=== PATIENT | female | born 1985 | race Caucasian/White ===

== ENCOUNTER 2016-04-10 19:56 | Emergency (ER) | payer MEDICAID ==
[2014-06-24 21:53] VITALS: BMI 17.8
[~2016-04-10 19:56] MED LIST: DILANTIN100 MG PO; FAMOTIDINE10 MG PO; HYDROCODONE-APA1 TAB PO; LEVAQUIN500 MG PO
[2016-04-10 20:58] LABS: EOSINOPHILS 2.3 % (0-7); HEMATOCRIT 40.8 % (36.0-48.0); HEMOGLOBIN 13.7 g/dL (12-16); IMMATURE GRANULOCYTES 0.5 % (0-5); LYMPHOCYTES 21.7 % (15-50); MCH 29.3 pg (26.0-34.0); MCHC 33.6 g/dL (31.0-37.0); MCV 87.4 fL (80.0-100.0); MEAN PLATELET VOLUME 11.3 fL (7.4-10.4); MONOCYTES 15.6 % (2-11); NEUTROPHILS 58.9 % (40-80); PLATELET COUNT 216 10x3/uL (130-400); RBC 4.67 10x6/uL (4.00-5.40); WBC 6.2 10x3/uL (4.8-10.8)
[2016-04-10 21:08] LABS: APTT 30.3 SECONDS (22.8-39.4); INR 1.15 (0.85-1.17); PROTIME 14.6 SECONDS (11.6-15.0)
[2016-04-10 21:17] LABS: ALBUMIN 3.7 g/dL (3.4-5.0); ALKALINE PHOSPHATASE 61 U/L (46-116); ALT (SGPT) 12 U/L (10-68); BILIRUBIN - TOTAL 0.54 mg/dL (0.2-1.3); CALC OSMOLALITY 283 mosm/kg (275-300); CALCIUM 8.8 mg/dL (8.5-10.1); CARBON DIOXIDE 27.1 mmol/L (21.0-32.0); CHLORIDE - SERUM 106 mmol/L (98-107); CREATININE - SERUM 0.9 mg/dL (0.6-1.3); GLUCOSE 90 mg/dL (74-106); POTASSIUM - SERUM 3.1 mmol/L (3.5-5.1); PROTEIN - SERUM 7.4 g/dL (6.4-8.2); SODIUM 143 mmol/L (136-145); UREA NITROGEN 9 mg/dL (7-18); eGFR NON AFRICAN AMERICAN 78 mL/min (90-120)
== END 2016-04-11 01:28 | disposition home or self-care (01) ==
LOC: D.ER 19:56
PROVIDERS: Family Medicine
DX: R10.9 Unspecified abdominal pain (principal); F17.200 Nicotine dependence, unspecified, uncomplicated; B19.20 Unspecified viral hepatitis C without hepatic coma; G40.909 Epilepsy, unspecified, not intractable, without status epilepticus

== ENCOUNTER → 2016-04-25 12:52 | Outpatient (CLI) | payer MEDICAID ==
[2014-06-24 21:53] VITALS: BMI 17.8
--- NOTE | 2016-05-03 08:45 | EEG ---
PATIENT:ADAN VALADEZ DATE OF SERVICE: 04/25/16 MEDICAL RECORD: [id number] DATE OF : 87 LOCATION: [facility] ADMISSION DATE: 04/25/16 REFERRING PHYSICIAN: INTERPRETING PHYSICIAN: RAHEL MONGE MD DATE OF SERVICE: 04/25/2016 Referred as an outpatient by Dr. Uzair Altman. ELECTROENCEPHALOGRAM NUMBER: [id number]. DATE OF EXAMINATION: 04/25/2016 at 1:30 p.m. TECHNICAL DATA: This electroencephalographic recording consisted of approximately 20 minutes of data collection utilizing the international 10/20 system of electrode placement and both referential and non-referential montages. Sixteen channels of electrocerebral recording are accompanied by a 17th channel dedicated to the electrocardiographic rhythm and 2 channels of electromyographic recording. Recording is performed entirely in the waking state utilizing activation by photic stimulation. ELECTROENCEPHALOGRAPHIC DATA: The awake state comprises the entirety of the recorded electrocerebral activity. Electromyographic artifact is prominent and rapid eye movements are seen. The posterior dominant background consists of a symmetric, rhythmic, waxing and waning 8-9 Hz alpha activity, which is suppressed by eye opening. On 2 separate occasions, there is sudden 3 Hz spike and wave activity that lasts only 1-2 seconds. No clinical correlate is observed. Photic stimulation induces no change in the recorded electrocerebral activity. INTERPRETATION: A 3 Hz spike and wave (awake). This electroencephalographic recording demonstrates a pattern of 3 Hz spike and wave activity that is generalized in distribution, which is often associated with typical absence. Clinical correlation is required. TRANSINT:[id number] Voice Confirmation ID: [id number] DOCUMENT ID: [id number] RAHEL MONGE MD at 0845 CC: [id number] DICTATION DATE: 04/26/16 0615 BAR ASSISTANT: 04/26/16 0702 DEP CLI 04/25/16 [place] [id number] [place] [id number]
== END | disposition home or self-care (01) ==
LOC: D.CN 04-21 11:00
DX: R56.9 Unspecified convulsions (principal)

== ENCOUNTER 2016-06-12 19:00 | Emergency (ER) | payer MEDICAID ==
[2014-06-24 21:53] VITALS: BMI 17.8
[2016-06-12 19:32] LABS: BASOPHILS 1.5 % (0.0-2.0); EOSINOPHILS 4.2 % (0-7); HEMATOCRIT 44.5 % (36.0-48.0); HEMOGLOBIN 14.5 g/dL (12-16); IMMATURE GRANULOCYTES 0.2 % (0-5); LYMPHOCYTES 34.7 % (15-50); MCH 28.9 pg (26.0-34.0); MCHC 32.6 g/dL (31.0-37.0); MCV 88.6 fL (80.0-100.0); MEAN PLATELET VOLUME 11.4 fL (7.4-10.4); MONOCYTES 7.9 % (2-11); NEUTROPHILS 51.5 % (40-80); PLATELET COUNT 232 10x3/uL (130-400); RBC 5.02 10x6/uL (4.00-5.40); RDW 14.1 % (11.5-14.5); WBC 5.5 10x3/uL (4.8-10.8)
[2016-06-12 19:47] LABS: HCG SERUM NEGATIVE (NEGATIVE)
[2016-06-12 22:32] LABS: APPEARANCE CLEAR (CLEAR); COLOR YELLOW (YELLOW); LEUKOCYTE ESTERASE TRACE (NEGATIVE)
[2016-06-12 22:33] LABS: BACTERIA MODERATE /hpf (NONE SEEN); BILIRUBIN NEGATIVE (NEGATIVE); GLUCOSE NEGATIVE (NEGATIVE); KETONE NEGATIVE (NEGATIVE); NITRITE POSITIVE (NEGATIVE); PROTEIN NEGATIVE (NEGATIVE); RED CELLS - URINE OCC /hpf (0-5); UROBILINOGEN NORMAL (NORMAL)
== END 2016-06-12 21:47 | disposition home or self-care (01) ==
LOC: D.ER 19:00
PROVIDERS: Emergency Medicine; Physician Assistant Medical
DX: J06.9 Acute upper respiratory infection, unspecified (principal); H66.92 Otitis media, unspecified, left ear; M25.50 Pain in unspecified joint; N39.0 Urinary tract infection, site not specified; B19.20 Unspecified viral hepatitis C without hepatic coma; G40.909 Epilepsy, unspecified, not intractable, without status epilepticus; F17.200 Nicotine dependence, unspecified, uncomplicated

== ENCOUNTER 2016-06-22 15:40 | Emergency (ER) | payer MEDICAID ==
[2014-06-24 21:53] VITALS: BMI 17.8
[2016-06-22 19:40] LABS: APPEARANCE CLEAR (CLEAR); BILIRUBIN NEGATIVE (NEGATIVE); COLOR YELLOW (YELLOW); GLUCOSE NEGATIVE (NEGATIVE); KETONE SMALL mg/dL (NEGATIVE); LEUKOCYTE ESTERASE NEGATIVE (NEGATIVE); NITRITE NEGATIVE (NEGATIVE); PROTEIN NEGATIVE (NEGATIVE); UROBILINOGEN NORMAL (NORMAL)
== END 2016-06-22 19:21 | disposition home or self-care (01) ==
LOC: D.ER 15:40
PROVIDERS: Emergency Medicine
DX: J20.9 Acute bronchitis, unspecified (principal); F17.200 Nicotine dependence, unspecified, uncomplicated

== ENCOUNTER 2016-06-29 17:33 | Emergency (ER) | payer MEDICAID ==
[2014-06-24 21:53] VITALS: BMI 17.8
[2016-06-29 19:25] LABS: APPEARANCE CLEAR (CLEAR); BILIRUBIN NEGATIVE (NEGATIVE); COLOR YELLOW (YELLOW); GLUCOSE NEGATIVE (NEGATIVE); KETONE NEGATIVE (NEGATIVE); LEUKOCYTE ESTERASE NEGATIVE (NEGATIVE); NITRITE NEGATIVE (NEGATIVE); PROTEIN NEGATIVE (NEGATIVE); UROBILINOGEN NORMAL (NORMAL)
== END 2016-06-29 20:21 | disposition home or self-care (01) ==
LOC: D.ER 17:33
PROVIDERS: Emergency Medicine
DX: J20.9 Acute bronchitis, unspecified (principal); J01.90 Acute sinusitis, unspecified; R30.0 Dysuria; F17.200 Nicotine dependence, unspecified, uncomplicated

== ENCOUNTER 2016-08-01 16:18 | Emergency (ER) | payer MEDICAID ==
[2014-06-24 21:53] VITALS: BMI 17.8
== END 2016-08-01 21:52 | disposition left against medical advice (07) ==
LOC: D.ER 16:18
DX: S99.921A Unspecified injury of right foot, initial encounter (principal); X58.XXXA Exposure to other specified factors, initial encounter; Y93.89 Activity, other specified; Y92.89 Other specified places as the place of occurrence of the external cause

== ENCOUNTER 2016-11-23 10:46 | Emergency (ER) | payer MEDICAID ==
[2014-06-24 21:53] VITALS: BMI 17.8
[2016-11-23 12:17] LABS: HCG URINE NEGATIVE (NEGATIVE)
[2016-11-23 12:25] LABS: APPEARANCE CLOUDY (CLEAR); BACTERIA MANY /hpf (NONE SEEN); BILIRUBIN NEGATIVE (NEGATIVE); COLOR YELLOW (YELLOW); EPITHELIAL CELLS 0-5 /hpf (0-5); GLUCOSE NEGATIVE (NEGATIVE); KETONE NEGATIVE (NEGATIVE); LEUKOCYTE ESTERASE 1+ (NEGATIVE); MUCUS <1+ /lpf (NONE SEEN); NITRITE POSITIVE (NEGATIVE); PROTEIN NEGATIVE (NEGATIVE); UROBILINOGEN NORMAL (NORMAL)
== END 2016-11-23 13:00 | disposition home or self-care (01) ==
LOC: D.ER 10:46
PROVIDERS: Emergency Medicine
DX: M54.5 Low back pain (principal); M79.602 Pain in left arm

== ENCOUNTER 2016-11-26 14:06 | Emergency (ER) | payer MEDICAID ==
[2014-06-24 21:53] VITALS: BMI 17.8
== END 2016-11-26 16:35 | disposition home or self-care (01) ==
LOC: D.ER 14:06
DX: S99.922A Unspecified injury of left foot, initial encounter (principal); W10.9XXA Fall (on) (from) unspecified stairs and steps, initial encounter; Y93.89 Activity, other specified; Y92.019 Unspecified place in single-family (private) house as the place of occurrence of the external cause; F17.200 Nicotine dependence, unspecified, uncomplicated

== ENCOUNTER 2017-02-13 19:34 | Emergency (ER) | payer MEDICAID ==
[2014-06-24 21:53] VITALS: BMI 17.8
[2017-02-13 20:31] LABS: BASOPHILS 0.5 % (0-2); HEMATOCRIT 42.2 % (36.0-48.0); HEMOGLOBIN 13.8 g/dL (12-16); IMMATURE GRANULOCYTES 0.1 % (0-5); LYMPHOCYTES 26.2 % (15-50); MCH 29.5 pg (26.0-34.0); MCHC 32.7 g/dL (31.0-37.0); MCV 90.2 fL (80.0-100.0); MEAN PLATELET VOLUME 11.4 fL (7.4-10.4); MONOCYTES 8.1 % (2-11); NEUTROPHILS 58.1 % (40-80); PLATELET COUNT 232 10x3/uL (130-400); RBC 4.68 10x6/uL (4.00-5.40); WBC 9.4 10x3/uL (4.8-10.8)
[2017-02-13 20:42] LABS: APPEARANCE HAZY (CLEAR); COLOR YELLOW (YELLOW); SPECIFIC GRAVITY 1.015 (1.005-1.020)
[2017-02-13 20:43] LABS: BACTERIA FEW /hpf (NONE SEEN); BILIRUBIN NEGATIVE (NEGATIVE); GLUCOSE NEGATIVE (NEGATIVE); KETONE NEGATIVE (NEGATIVE); NITRITE NEGATIVE (NEGATIVE); PROTEIN NEGATIVE (NEGATIVE); RED CELLS - URINE >50 /hpf (0-5); UROBILINOGEN NORMAL (NORMAL)
[2017-02-13 20:47] LABS: HCG SERUM NEGATIVE (NEGATIVE)
== END 2017-02-13 23:32 | disposition home or self-care (01) ==
LOC: D.ER 19:34
PROVIDERS: Emergency Medicine; Physician Assistant
DX: N93.9 Abnormal uterine and vaginal bleeding, unspecified (principal); R10.2 Pelvic and perineal pain; N73.9 Female pelvic inflammatory disease, unspecified; F17.200 Nicotine dependence, unspecified, uncomplicated

== ENCOUNTER 2017-04-23 08:49 | Emergency (ER) | payer MEDICAID ==
[2014-06-24 21:53] VITALS: BMI 17.8
[2017-04-23 09:25] LABS: HCG URINE NEGATIVE (NEGATIVE)
[2017-04-23 09:25] LABS: BASOPHILS 0.2 % (0-2); EOSINOPHILS 3.5 % (0-7); HEMOGLOBIN 15.2 g/dL (12-16); IMMATURE GRANULOCYTES 0.3 % (0-5); LYMPHOCYTES 13.3 % (15-50); MCH 29.8 pg (26.0-34.0); MCHC 33.8 g/dL (31.0-37.0); MCV 88.2 fL (80.0-100.0); MONOCYTES 6.5 % (2-11); NEUTROPHILS 76.2 % (40-80); PLATELET COUNT 270 10x3/uL (130-400)
[2017-04-23 09:28] LABS: APPEARANCE CLEAR (CLEAR); BILIRUBIN NEGATIVE (NEGATIVE); COLOR YELLOW (YELLOW); GLUCOSE NEGATIVE (NEGATIVE); KETONE NEGATIVE (NEGATIVE); NITRITE NEGATIVE (NEGATIVE); PROTEIN NEGATIVE (NEGATIVE); SPECIFIC GRAVITY 1.015 (1.005-1.020); UROBILINOGEN NORMAL (NORMAL)
[2017-04-23 09:29] LABS: EPITHELIAL CELLS 0-5 /hpf (0-5); RED CELLS - URINE 0-5 /hpf (0-5)
[2017-04-23 09:30] LABS: BACTERIA FEW /hpf (NONE SEEN)
[2017-04-23 09:40] LABS: ALKALINE PHOSPHATASE 78 U/L (46-116); ALT (SGPT) 15 U/L (10-68); AMYLASE - SERUM 86 U/L (25-115); BILIRUBIN - TOTAL 0.21 mg/dL (0.2-1.3); CALC OSMOLALITY 277 mosm/kg (275-300); CALCIUM 8.7 mg/dL (8.5-10.1); CARBON DIOXIDE 22.9 mmol/L (21.0-32.0); CHLORIDE - SERUM 106 mmol/L (98-107); CREATININE - SERUM 0.9 mg/dL (0.6-1.3); GLUCOSE 105 mg/dL (74-106); LIPASE 153 U/L (73-393); POTASSIUM - SERUM 3.8 mmol/L (3.5-5.1); PROTEIN - SERUM 7.4 g/dL (6.4-8.2); SODIUM 139 mmol/L (136-145); UREA NITROGEN 13 mg/dL (7-18); eGFR NON AFRICAN AMERICAN 78 mL/min (90-120)
[2017-04-23 09:53] LABS: UDS - AMPHET NEGATIVE QUAL (NEGATIVE); UDS - BARB NEGATIVE QUAL (NEGATIVE); UDS - BENZO NEGATIVE QUAL (NEGATIVE); UDS - COCAINE NEGATIVE QUAL (NEGATIVE); UDS - OPIATE NEGATIVE QUAL (NEGATIVE); UDS - PCP NEGATIVE QUAL (NEGATIVE); UDS - THC POSITIVE QUAL (NEGATIVE)
== END 2017-04-23 11:23 | disposition home or self-care (01) ==
LOC: D.ER 08:49
PROVIDERS: Family Medicine
DX: R10.9 Unspecified abdominal pain (principal); A59.01 Trichomonal vulvovaginitis; K29.00 Acute gastritis without bleeding; F17.200 Nicotine dependence, unspecified, uncomplicated

== ENCOUNTER 2017-06-06 21:09 | Emergency (ER) | payer MEDICAID ==
[2014-06-24 21:53] VITALS: BMI 17.8
[2017-06-06 22:24] LABS: APPEARANCE CLEAR (CLEAR); BILIRUBIN NEGATIVE (NEGATIVE); COLOR YELLOW (YELLOW); GLUCOSE NEGATIVE (NEGATIVE); KETONE NEGATIVE (NEGATIVE); NITRITE NEGATIVE (NEGATIVE); PROTEIN NEGATIVE (NEGATIVE); UROBILINOGEN NORMAL (NORMAL)
[2017-06-06 22:26] LABS: BACTERIA MANY /hpf (NONE SEEN); EPITHELIAL CELLS 0-5 /hpf (0-5); RED CELLS - URINE OCC /hpf (0-5); WHITE CELLS - URINE >50 /hpf (0-5)
[2017-06-06 22:57] LABS: BASOPHILS 0.4 % (0-2); EOSINOPHILS 2.2 % (0-7); HEMATOCRIT 41.2 % (36.0-48.0); HEMOGLOBIN 13.5 g/dL (12-16); IMMATURE GRANULOCYTES 0.2 % (0-5); LYMPHOCYTES 18.3 % (15-50); MCH 28.9 pg (26.0-34.0); MCHC 32.8 g/dL (31.0-37.0); MCV 88.2 fL (80.0-100.0); MEAN PLATELET VOLUME 11.4 fL (7.4-10.4); NEUTROPHILS 68.9 % (40-80); PLATELET COUNT 288 10x3/uL (130-400); RBC 4.67 10x6/uL (4.00-5.40); RDW 13.3 % (11.5-14.5); WBC 9.8 10x3/uL (4.8-10.8)
[2017-06-06 23:02] LABS: HCG SERUM NEGATIVE (NEGATIVE)
[2017-06-06 23:18] LABS: ALBUMIN 3.7 g/dL (3.4-5.0); ALKALINE PHOSPHATASE 79 U/L (46-116); ALT (SGPT) 14 U/L (10-68); BILIRUBIN - TOTAL 0.26 mg/dL (0.2-1.3); CALC OSMOLALITY 273 mosm/kg (275-300); CALCIUM 8.9 mg/dL (8.5-10.1); CARBON DIOXIDE 25.2 mmol/L (21.0-32.0); CHLORIDE - SERUM 101 mmol/L (98-107); CREATININE - SERUM 0.9 mg/dL (0.6-1.3); GLUCOSE 90 mg/dL (74-106); POTASSIUM - SERUM 3.5 mmol/L (3.5-5.1); PROTEIN - SERUM 8.1 g/dL (6.4-8.2); SODIUM 138 mmol/L (136-145); UREA NITROGEN 8 mg/dL (7-18); eGFR NON AFRICAN AMERICAN 77 mL/min (90-120)
[2017-06-09 10:20] LABS: CHLAMYDIA TRACHOMATIS, NAA Negative (Negative)
== END 2017-06-06 23:23 | disposition home or self-care (01) ==
LOC: D.ER 21:09
PROVIDERS: Physician Assistant
DX: R10.2 Pelvic and perineal pain (principal); R11.0 Nausea; F17.200 Nicotine dependence, unspecified, uncomplicated

== ENCOUNTER 2017-06-07 07:35 | Emergency (ER) | payer MEDICAID ==
[2014-06-24 21:53] VITALS: BMI 17.8
[2017-06-07 09:09] LABS: BASOPHILS 0.2 % (0-2); EOSINOPHILS 0 % (0-7); HEMATOCRIT 41.7 % (36.0-48.0); HEMOGLOBIN 13.9 g/dL (12-16); IMMATURE GRANULOCYTES 0.3 % (0-5); LYMPHOCYTES 3.7 % (15-50); MCH 29.4 pg (26.0-34.0); MCHC 33.3 g/dL (31.0-37.0); MCV 88.2 fL (80.0-100.0); MEAN PLATELET VOLUME 11.2 fL (7.4-10.4); MONOCYTES 2.5 % (2-11); NEUTROPHILS 93.3 % (40-80); PLATELET COUNT 307 10x3/uL (130-400); RBC 4.73 10x6/uL (4.00-5.40); RDW 13.1 % (11.5-14.5)
[2017-06-07 09:13] LABS: WBC 15.7 10x3/uL (4.8-10.8)
[2017-06-07 09:30] LABS: ALBUMIN 3.8 g/dL (3.4-5.0); ANION GAP 19.6 mmol/L (8-16); BILIRUBIN - TOTAL 0.34 mg/dL (0.2-1.3); CALCIUM 9.2 mg/dL (8.5-10.1); POTASSIUM - SERUM 3.6 mmol/L (3.5-5.1); PROTEIN - SERUM 8.5 g/dL (6.4-8.2)
== END 2017-06-07 18:00 | disposition home or self-care (01) ==
LOC: D.ER 07:35
PROVIDERS: Emergency Medicine
DX: K52.9 Noninfective gastroenteritis and colitis, unspecified (principal); R10.9 Unspecified abdominal pain; R11.2 Nausea with vomiting, unspecified; F17.200 Nicotine dependence, unspecified, uncomplicated

== ENCOUNTER 2017-08-19 19:20 | Emergency (ER) | payer MEDICAID ==
[2014-06-24 21:53] VITALS: BMI 17.8
[2017-08-19 20:47] LABS: BASOPHILS 0.5 % (0-2); EOSINOPHILS 5.8 % (0-7); HEMATOCRIT 40.5 % (36.0-48.0); HEMOGLOBIN 13.5 g/dL (12-16); IMMATURE GRANULOCYTES 0.1 % (0-5); MCH 29.1 pg (26.0-34.0); MCHC 33.3 g/dL (31.0-37.0); MCV 87.3 fL (80.0-100.0); MEAN PLATELET VOLUME 11.4 fL (7.4-10.4); MONOCYTES 7.2 % (2-11); NEUTROPHILS 61.4 % (40-80); RBC 4.64 10x6/uL (4.00-5.40); RDW 14.6 % (11.5-14.5); WBC 7.9 10x3/uL (4.8-10.8)
[2017-08-19 20:48] LABS: PLATELET COUNT 220 10x3/uL (130-400)
[2017-08-19 21:13] LABS: ALBUMIN 3.5 g/dL (3.4-5.0); ALKALINE PHOSPHATASE 76 U/L (46-116); ALT (SGPT) 21 U/L (10-68); CALC OSMOLALITY 277 mosm/kg (275-300); CALCIUM 8.3 mg/dL (8.5-10.1); CARBON DIOXIDE 24.7 mmol/L (21.0-32.0); CHLORIDE - SERUM 108 mmol/L (98-107); CREATININE - SERUM 0.9 mg/dL (0.6-1.3); POTASSIUM - SERUM 3.6 mmol/L (3.5-5.1); PROTEIN - SERUM 7.1 g/dL (6.4-8.2); SODIUM 140 mmol/L (136-145); UREA NITROGEN 10 mg/dL (7-18); eGFR NON AFRICAN AMERICAN 77 mL/min (90-120)
[2017-08-19 21:16] LABS: GLUCOSE 92 mg/dL (74-106)
[2017-08-19 22:01] LABS: APPEARANCE HAZY (CLEAR); BILIRUBIN NEGATIVE (NEGATIVE); COLOR YELLOW (YELLOW); GLUCOSE NEGATIVE (NEGATIVE); KETONE NEGATIVE (NEGATIVE); NITRITE NEGATIVE (NEGATIVE); PROTEIN NEGATIVE (NEGATIVE); SPECIFIC GRAVITY 1.015 (1.005-1.020); UROBILINOGEN NORMAL (NORMAL)
[2017-08-19 22:05] LABS: WHITE CELLS - URINE 0-5 /hpf (0-5)
[2017-08-19 22:06] LABS: BACTERIA FEW /hpf (NONE SEEN); EPITHELIAL CELLS 0-5 /hpf (0-5)
== END 2017-08-19 22:16 | disposition home or self-care (01) ==
LOC: D.ER 19:20
PROVIDERS: Family Medicine; Physician Assistant Medical
DX: J06.9 Acute upper respiratory infection, unspecified (principal); F17.200 Nicotine dependence, unspecified, uncomplicated

== ENCOUNTER 2017-08-23 20:10 | Emergency (ER) | payer MEDICAID ==
[2014-06-24 21:53] VITALS: BMI 17.8
== END 2017-08-23 22:17 | disposition home or self-care (01) ==
LOC: D.ER 20:10
DX: J06.9 Acute upper respiratory infection, unspecified (principal); J01.90 Acute sinusitis, unspecified; F17.200 Nicotine dependence, unspecified, uncomplicated

== ENCOUNTER 2017-11-11 12:06 | Emergency (ER) | payer MEDICAID ==
[~2017-11-11] VITALS: Ht 154.9 cm; Wt 51.8 kg
[2017-11-11 12:13] VITALS: Ht 154.9 cm; Wt 51.8 kg
[2017-11-11 12:50] LABS: APPEARANCE CLEAR (CLEAR); BILIRUBIN NEGATIVE (NEGATIVE); COLOR YELLOW (YELLOW); GLUCOSE NEGATIVE (NEGATIVE); KETONE NEGATIVE (NEGATIVE); NITRITE NEGATIVE (NEGATIVE); PROTEIN NEGATIVE (NEGATIVE); SPECIFIC GRAVITY 1.005 (1.005-1.020); UROBILINOGEN NORMAL (NORMAL)
[2017-11-11 13:07] VITALS: BP 109/67
== END 2017-11-11 13:08 | disposition home or self-care (01) ==
LOC: D.ER 12:06
PROVIDERS: Family Medicine
DX: J02.9 Acute pharyngitis, unspecified (principal); G40.909 Epilepsy, unspecified, not intractable, without status epilepticus; F17.200 Nicotine dependence, unspecified, uncomplicated

== ENCOUNTER 2018-01-13 18:12 | Emergency (ER) | payer MEDICAID ==
[~2018-01-13] VITALS: Ht 154.9 cm; Wt 50.0 kg
[2018-01-13 18:45] VITALS: Ht 154.9 cm; Wt 50.0 kg
[2018-01-13 19:06] LABS: APPEARANCE CLEAR (CLEAR); BILIRUBIN NEGATIVE (NEGATIVE); COLOR YELLOW (YELLOW); GLUCOSE NEGATIVE (NEGATIVE); KETONE NEGATIVE (NEGATIVE); NITRITE NEGATIVE (NEGATIVE); PROTEIN NEGATIVE (NEGATIVE); UROBILINOGEN NORMAL (NORMAL)
[2018-01-13 19:08] LABS: HCG URINE NEGATIVE (NEGATIVE)
[2018-01-13 20:05] VITALS: BP 122/71
== END 2018-01-13 20:07 | disposition home or self-care (01) ==
LOC: D.ER 18:12
PROVIDERS: Family Medicine
DX: Z20.2 Contact with and (suspected) exposure to infections with a predominantly sexual mode of transmission (principal); R11.10 Vomiting, unspecified; R51 Headache; H92.03 Otalgia, bilateral; F17.200 Nicotine dependence, unspecified, uncomplicated

== ENCOUNTER 2018-03-07 20:11 | Emergency (ER) | payer MEDICAID ==
[~2018-03-07] VITALS: Ht 154.9 cm; Wt 50.0 kg
[2018-03-07 20:25] VITALS: Ht 154.9 cm; Wt 50.0 kg
[2018-03-07] MEDS ORDERED: MUCINEX DM ER1 EAC1 PO (23:20)
[2018-03-07] MEDS ORDERED: IMODIUM2 MG PO (23:20)
[2018-03-07 23:40] VITALS: BP 128/75
== END 2018-03-07 23:46 | disposition home or self-care (01) ==
LOC: D.ER 20:11
DX: J06.9 Acute upper respiratory infection, unspecified (principal); R19.7 Diarrhea, unspecified; R09.89 Other specified symptoms and signs involving the circulatory and respiratory systems; J02.9 Acute pharyngitis, unspecified; R05 Cough; G40.909 Epilepsy, unspecified, not intractable, without status epilepticus; Z86.59 Personal history of other mental and behavioral disorders; F17.200 Nicotine dependence, unspecified, uncomplicated

== ENCOUNTER 2018-03-30 18:34 | Emergency (ER) | payer MEDICAID ==
[~2018-03-30] VITALS: Ht 154.9 cm; Wt 51.8 kg
[~2018-03-30 18:34] MED LIST changes: +IMODIUM2 MG PO; +MUCINEX DM ER1 EAC1 PO
[2018-03-30 18:55] VITALS: BP 110/63; Ht 154.9 cm; Wt 51.8 kg
== END 2018-03-30 20:32 | disposition left against medical advice (07) ==
LOC: D.ER 18:34
DX: J02.9 Acute pharyngitis, unspecified (principal); R05 Cough; R09.89 Other specified symptoms and signs involving the circulatory and respiratory systems; R19.7 Diarrhea, unspecified; M79.18 Myalgia, other site

== ENCOUNTER 2019-06-21 13:07 | Emergency (ER) | payer MEDICAID ==
[~2019-06-21] VITALS: Ht 154.9 cm; Wt 55.0 kg
[2019-06-21 13:13] VITALS: Ht 154.9 cm; Wt 55.0 kg
[2019-06-21] MEDS ORDERED: TYLENOL #4 W/CO1 TAB PO (16:10)
[2019-06-21 16:41] VITALS: BP 112/68
== END 2019-06-21 16:42 | disposition home or self-care (01) ==
LOC: D.ER 13:07
DX: N80.9 Endometriosis, unspecified (principal); G43.909 Migraine, unspecified, not intractable, without status migrainosus

== ENCOUNTER 2019-10-07 09:14 | Emergency (ER) | payer MEDICAID ==
[~2019-10-07] VITALS: Ht 160 cm; Wt 56.4 kg
[~2019-10-07 09:14] MED LIST changes: +TYLENOL #4 W/CO1 TAB PO
[2019-10-07 09:36] VITALS: Ht 160 cm; Wt 56.4 kg
[2019-10-07] MEDS ORDERED: GABAPENTIN300 MG PO (09:37)
[2019-10-07] MEDS ORDERED: ESTRACE2 MG PO (09:38)
[2019-10-07] MEDS ORDERED: CYCLOBENZAPRINE10 MG PO (09:38)
[2019-10-07 10:29] LABS: APTT 27.1 SECONDS (22.8-39.4); CALC OSMOLALITY 276 mosm/kg (275-300); CALCIUM 9.5 mg/dL (8.5-10.1); CARBON DIOXIDE 26.7 mmol/L (21.0-32.0); CHLORIDE - SERUM 102 mmol/L (98-107); CREATININE - SERUM 0.9 mg/dL (0.6-1.3); GLUCOSE 92 mg/dL (74-106); POTASSIUM - SERUM 3.3 mmol/L (3.5-5.1); SODIUM 139 mmol/L (136-145); UREA NITROGEN 11 mg/dL (7-18); eGFR NON AFRICAN AMERICAN 76 mL/min (90-120)
[2019-10-07 10:31] LABS: INR 0.91 (0.85-1.17); PROTIME 12.2 SECONDS (11.6-15.0)
[2019-10-07 10:33] LABS: D-DIMER-QUANTITATIVE < 0.27 ug/mLFEU (0.20-0.54)
[2019-10-07 10:36] LABS: HEMATOCRIT 47.1 % (36.0-48.0); HEMOGLOBIN 15.4 g/dL (12-16); LYMPHOCYTES 36.6 % (15-50); MCH 27.6 pg (26.0-34.0); MCHC 32.7 g/dL (31.0-37.0); MCV 84.4 fL (80.0-100.0); MEAN PLATELET VOLUME 11.2 fL (7.4-10.4); PLATELET COUNT 262 10x3/uL (130-400); RBC 5.58 10x6/uL (4.00-5.40); RDW 14.9 % (11.5-14.5); WBC 5.5 10x3/uL (4.8-10.8)
[2019-10-07 10:46] LABS: ALBUMIN 4.4 g/dL (3.4-5.0); ALKALINE PHOSPHATASE 84 U/L (30-120); ALT (SGPT) 23 U/L (10-68); BILIRUBIN - TOTAL 0.48 mg/dL (0.2-1.3); CKMB 0.6 U/L (0.0-3.6); CREATINE KINASE 135 UL (21-215); PROTEIN - SERUM 8.5 g/dL (6.4-8.2); TROPONIN-I < 0.017 ng/mL (0.000-0.060)
[2019-10-07] MEDS ORDERED: STERAPRED DS 1010 MG PO (11:17)
[2019-10-07] MEDS ORDERED: PHENERGAN25 M1 PO (11:17)
[2019-10-07 11:45] VITALS: BP 126/83
== END 2019-10-07 11:46 | disposition home or self-care (01) ==
LOC: D.ER 09:14
PROVIDERS: Family Medicine
DX: M54.12 Radiculopathy, cervical region (principal); R07.9 Chest pain, unspecified; G89.29 Other chronic pain

== ENCOUNTER 2019-12-05 15:30 | Emergency (ER) | payer MEDICAID ==
[~2019-12-05] VITALS: Ht 160 cm; Wt 56.8 kg
[~2019-12-05 15:30] MED LIST changes: +CYCLOBENZAPRINE10 MG PO; +ESTRACE2 MG PO; +GABAPENTIN300 MG PO; +PHENERGAN25 M1 PO; +STERAPRED DS 1010 MG PO
[2019-12-05 15:53] VITALS: Ht 160 cm; Wt 56.8 kg
[2019-12-05 18:02] LABS: HCG URINE NEGATIVE (NEGATIVE)
[2019-12-05 18:06] LABS: BILIRUBIN NEGATIVE (NEGATIVE); KETONE NEGATIVE (NEGATIVE); NITRITE NEGATIVE (NEGATIVE); UROBILINOGEN NORMAL mg/dL (< 2)
[2019-12-05 18:07] LABS: BACTERIA FEW /HPF (NONE SEEN)
[2019-12-05] MEDS ORDERED: STERAPRED DS 1010 MG PO (18:35)
[2019-12-05] MEDS ORDERED: ZPAK PO (18:35)
[2019-12-05] MEDS ORDERED: MUCINEX DM ER1 EAC1 PO (18:35)
[2019-12-05 19:31] VITALS: BP 122/74
== END 2019-12-06 02:03 | disposition home or self-care (01) ==
LOC: D.ER 15:30
PROVIDERS: Family Medicine
DX: J06.9 Acute upper respiratory infection, unspecified (principal); R05 Cough; Z72.0 Tobacco use; R50.9 Fever, unspecified; R51 Headache; R68.89 Other general symptoms and signs

== ENCOUNTER 2019-12-11 14:02 | Emergency (ER) | payer MEDICAID ==
[~2019-12-11] VITALS: Ht 160 cm; Wt 57.7 kg
[~2019-12-11 14:02] MED LIST changes: +ZPAK PO
[2019-12-11 14:33] VITALS: Ht 160 cm; Wt 57.7 kg
[2019-12-11 15:54] LABS: BASOPHILS 0.2 % (0-2); EOSINOPHILS 3.3 % (0-7); HEMATOCRIT 42.2 % (36.0-48.0); HEMOGLOBIN 13.9 g/dL (12-16); IMMATURE GRANULOCYTES 0.7 % (0-5); LYMPHOCYTES 41.6 % (15-50); MCH 27.7 pg (26.0-34.0); MCHC 32.9 g/dL (31.0-37.0); MCV 84.2 fL (80.0-100.0); MEAN PLATELET VOLUME 10.3 fL (7.4-10.4); MONOCYTES 6.5 % (2-11); NEUTROPHILS 47.7 % (40-80); RBC 5.01 10x6/uL (4.00-5.40); RDW 15.1 % (11.5-14.5); WBC 9.9 10x3/uL (4.8-10.8)
[2019-12-11 16:05] LABS: ANION GAP 10.4 mmol/L (8-16); CALCIUM 8.8 mg/dL (8.5-10.1); CARBON DIOXIDE 24.8 mmol/L (21.0-32.0); POTASSIUM - SERUM 3.2 mmol/L (3.5-5.1)
[2019-12-11 16:12] LABS: ALBUMIN 3.3 g/dL (3.4-5.0); BILIRUBIN - TOTAL 0.14 mg/dL (0.2-1.3); PROTEIN - SERUM 6.8 g/dL (6.4-8.2)
[2019-12-11 16:19] LABS: PLATELET COUNT 316 10x3/uL (130-400)
[2019-12-11] MEDS ORDERED: ZPAK PO (17:18)
[2019-12-11] MEDS ORDERED: ALBUTEROL SULF8.5 GM INH (17:18)
[2019-12-11] MEDS ORDERED: MEDROL DOSE PACK4 MG PO (17:18)
[2019-12-11 18:38] VITALS: BP 106/60
== END 2019-12-11 18:38 | disposition home or self-care (01) ==
LOC: D.ER 14:02
DX: J06.9 Acute upper respiratory infection, unspecified (principal); J40 Bronchitis, not specified as acute or chronic

== ENCOUNTER 2020-04-17 13:00 | Outpatient (CLI) | payer MEDICAID ==
[2019-12-11 14:33] VITALS: BMI 22.5
[~2020-04-17 13:00] MED LIST changes: +ALBUTEROL SULF8.5 GM INH; +MEDROL DOSE PACK4 MG PO
== END 2020-04-17 23:59 | disposition home or self-care (01) ==
LOC: D.RT 13:00
PROVIDERS: ATTEND Nurse Practitioner
DX: R06.02 Shortness of breath (principal)

== ENCOUNTER 2020-08-12 07:56 | Day surgery (SDC) | payer MEDICAID ==
[~2020-08-12] VITALS: Ht 160 cm; Wt 63.5 kg
[~2020-08-12 07:56] MED LIST changes: +BUSPAR 15 MG TA15 MG PO; +DEPAKOTE ER250 MG PO; +HYDROCODONE-AC1 EAC2 PO; +OMEPRAZOLE40 MG PO; +VITAMIN D325 MC1 PO; +ZOVIRAX200 MG PO; +[UNRECOGNIZED DRUG - REMARK] PO
[2020-08-12 08:34] LABS: HCG SERUM NEGATIVE (NEGATIVE)
[2020-08-12 08:47] LABS: HEMOGLOBIN 12.7 g/dL (12-16); MCH 28.6 pg (26.0-34.0); MCHC 33.4 g/dL (31.0-37.0); MCV 85.8 fL (80.0-100.0); MEAN PLATELET VOLUME 9.3 fL (7.4-10.4); RBC 4.44 10x6/uL (4.00-5.40); RDW 14.2 % (11.5-14.5); WBC 8.7 10x3/uL (4.8-10.8)
[2020-08-12 09:14] VITALS: BP 100/63; Ht 160 cm; Wt 63.5 kg
--- NOTE | 2020-08-12 13:48 | NUR ---
PATIENT INSISTED ON WEARING EYEGLASSES TO OPERATING ROOM, STATING "I CANNOT SEE WITHOUT THEM AND WILL FIGHT WHEN I WAKE UP AND CANNOT SEE." GLASSES REMOVED FROM PATIENT IN OPERATING ROOM AND TRANSFERRED WITH PATIENT TO RECOVERY. NOTED, ANTHONY BALL
--- NOTE | 2020-08-12 13:50 | NUR ---
[employer] PRODUCTS OPENED AND USED FOR THIS PATIENT: PNE LEAD IMPLANT KIT #1701 LOT #[id number] EXP. 03/26/2021 PNE LEAD #1901 LOT #[id number] EXP. 03/09/2022 QUINN LOVE RN
--- NOTE | 2020-08-12 16:17 | NUR ---
1500 ACCESS SERVICES LIBRARIAN FLOOR CLERK REVIEWING INFORMATION WITH PT. 1515 IV DC'D. CATHETER TIP INTACT. NO BLEEDING AT SITE. COBAN DRESSING APPLIED. 1522 PT VOIDED WTIHOUT DIFFICULTY. 1525 DISCHARGE INSTRUCTIONS HAVE BEEN REVIEWED WITH PT WHO VOICES UNDERSTANDING OF THESE INSTRUCTIONS.
== END 2020-08-12 15:28 | disposition home or self-care (01) ==
LOC: D.OPS 07:56
PROVIDERS: Anesthesiology; ATTEND Obstetrics & Gynecology Maternal & Fetal Medicine
DX: R33.9 Retention of urine, unspecified (principal); R53.83 Other fatigue

== ENCOUNTER 2020-09-16 07:30 | Day surgery (SDC) | payer MEDICAID ==
[~2020-09-16] VITALS: Ht 160 cm; Wt 64.9 kg
[~2020-09-16 07:30] MED LIST changes: +CYANOCOBAL1000 MCG/4 SC; +CYPROHEPTAD2 MG/5 ML PO; +DEPO-ESTRADIOL
[2020-09-16 07:54] LABS: HEMATOCRIT 39.5 % (36.0-48.0); HEMOGLOBIN 13.2 g/dL (12-16); MCH 28.8 pg (26.0-34.0); MCHC 33.4 g/dL (31.0-37.0); MCV 86.3 fL (80.0-100.0); RBC 4.58 10x6/uL (4.00-5.40); RDW 14.7 % (11.5-14.5); WBC 9.8 10x3/uL (4.8-10.8)
[2020-09-16 08:05] VITALS: BP 101/58; Ht 160 cm; Wt 64.9 kg
--- NOTE | 2020-09-16 09:27 | NUR ---
[email or web address] SUPPLIES OPENED AND USED ON THIS PATIENT: [employer] SNM SYSTEM TINED LEAD #1201 SN [id number] EXP 08/01/2022 [employer] SNM SYSTEM NEEDLE TEST STIMULATION CABLE #1801 LOT#[id number] EXP. 01/09/2022 [employer] SNM SYSTEM LEAD IMPLANT TOOL KIT #1801 LOT #[id number] EXP. 01/09/2022 IVAN,ANTHONY BALL
--- NOTE | 2020-09-16 09:43 | NUR ---
[employer] SYSTEM NEUROSTIMULATOR REF#1101 SN [id number] EXP. 04/08/22
--- NOTE | 2020-09-16 12:36 | NUR ---
1130 PT UPSET AND REFUSED TO GO HOME UNTIL SOMEONE COMES BACK TO TALK TO HER. CATE CALLED AND NOTIFIED OF THE SITUATION. 1215 MEDICATED FOR PAIN. PTS COMPLAINT IS DURING THE TRIAL IT HELPED HER ON THE LEFT SIDE AND SHE SWITCHED OVER AND IT DIDNT HELP AT ALL. WONT GO HOME UNTIL REP COMES TO SEE PT
--- NOTE | 2020-09-16 12:51 | NUR ---
0477 SPOKE TO ANTHONY CUELLAR AT OFFICE. STATED HE WILL COME TALK TO PT IN 20-30 MIN
--- NOTE | 2020-09-16 13:21 | NUR ---
1300 PT STATED SHE DIDNT WANT TO HAVE IV REMOVED BECAUSE SHE WANTS TO GO BACK TO SURGERY AND HAVE IT REMOVED. OR ELSE SHE WILL [facility]. REQUESTED 2 CUPS OF COFFEE
--- NOTE | 2020-09-16 13:49 | NUR ---
ANTHONY HERE TO TALK TO
--- NOTE | 2020-09-16 14:07 | NUR ---
1400 PT CALLED AND REQUESTED TO TALK TO LOW VOLTAGE TECHNICIAN. TOBIAS NOTIFIED AND DENA KEANE RN. PT KEEPS TALKING ABOUT [facility] THE HOS[facility].
--- NOTE | 2020-09-16 14:09 | NUR ---
1100 REP HERE TO TALK AND INSTRUCT PT ON POST OP CARE.
--- NOTE | 2020-09-16 14:17 | NUR ---
1417 DENA KEANE RN MANAGER MANUFACTURING HERE TO TALK TO PT
--- NOTE | 2020-09-16 14:31 | NUR ---
0392 [address]ON[address] PAGED TO HAVE DR AMOR CALL UNIT. PT WANTS TO TALK TO DR AMOR AND SCHEDULE TO HAVE STIMULATOR REMOVED. ANTHONY STATED HE WILL HAVE DR AMOR CALL US AT [phone].
--- NOTE | 2020-09-16 15:54 | NUR ---
1500 PT D/C HOME WITH POST OP INTRUCTION AND RX. PT OFFERED A W/C BUT REFUSED. DOESNT APPEAR IN ANY PAIN AT THIS TIME
--- NOTE | 2020-09-16 15:55 | NUR ---
1355 IV REMOVED AND PRESSURE HELD.
== END 2020-09-16 15:00 | disposition home or self-care (01) ==
LOC: D.OPS 07:30
PROVIDERS: Anesthesiology; ATTEND Obstetrics & Gynecology Maternal & Fetal Medicine
DX: R33.9 Retention of urine, unspecified (principal); N39.41 Urge incontinence

== ENCOUNTER 2020-09-23 11:28 | Day surgery (SDC) | payer MEDICAID ==
[~2020-09-23] VITALS: Ht 160 cm; Wt 64.0 kg
[2020-09-23] MEDS ORDERED: PERCOCET 7.5/321 TAB (13:04)
[2020-09-23 13:05] VITALS: BP 111/63; Ht 160 cm; Wt 64.0 kg
--- NOTE | 2020-09-23 15:06 | NUR ---
SCOPE PATCH BEHIND RT EAR ON ADMIT
--- NOTE | 2020-09-23 15:18 | NUR ---
ET TUBE IN AIRWAY ON ADMIT
--- NOTE | 2020-09-23 15:18 | NUR ---
ET TUBE REMOVED @5674
--- NOTE | 2020-09-23 16:39 | NUR ---
1639 PT REPORTS PAIN LEVEL AT 8 OUT OF 10. PERCOCET PO GIVEN.
--- NOTE | 2020-09-23 19:38 | NUR ---
1700 - PATIENT UP TO VOID WITHOUT DIFFICULTIES.
--- NOTE | 2020-09-23 19:39 | NUR ---
1715 - IV D/C'D WITH TIP INTACT.
--- NOTE | 2020-09-23 19:39 | NUR ---
1750 - PATIENT DISCHARGED VIA WHEELCHAIR TO PRIVATE CAR. WAS AWAITING RIDE FOR DISCHARGE.
== END 2020-09-23 17:50 | disposition home or self-care (01) ==
LOC: D.OPS 11:28
PROVIDERS: ATTEND Obstetrics & Gynecology Maternal & Fetal Medicine
DX: R33.9 Retention of urine, unspecified (principal); T83.29XA Other mechanical complication of graft of urinary organ, initial encounter